=== PATIENT | male | born 1960 | race Caucasian/White ===

== ENCOUNTER 2018-07-29 09:32 | Inpatient (IN) | payer OTHER ==
[~2018-07-29 09:32] MED LIST: CEFAZOLIN 1 GM INJ; LIDOCAINE 2% (SDV) 5 ML INJ; SEVOFLURANE 15 MIN
[2018-07-29] MEDS: LACTATED RINGER'S 1,000 ML IV* (11:30)
[2018-07-29] MEDS ORDERED: CEFAZOLIN 2 GM/50 ML (PMX) 50 ML IVPB (11:30)
[2018-07-29] MEDS: THROMBIN (BOVINE) 5,000 UNIT VIAL TP ×2 (11:49→13:37)
[2018-07-29] MEDS: SURGIFOAM POWDER 1 GM KIT (11:49)
[2018-07-29] MEDS: POLYMYXIN/BACITRACIN 1L IRRIG (11:49)
[2018-07-29] MEDS: BUPIVACAINE 0.5%/EPI (SDV) 30 ML INJ (11:49)
[2018-07-29] MEDS: HEPARIN 1000 UNITS/ML 10 ML INJ (11:49)
[2018-07-29] MEDS ORDERED: HYDROmorphONE 1 MG/5 ML IV SYRINGE IV ×3 (12:30)
[2018-07-29] MEDS ORDERED: LABETALOL HCL 20MG INJ IV (12:30)
[2018-07-29] MEDS ORDERED: EPHEDrine SULFATE 50 MG/5 ML SYG IV (12:30)
[2018-07-29] MEDS ORDERED: hydrALAzine 20 MG INJ IV (12:30)
[2018-07-29] MEDS ORDERED: MEPERIDINE 25 MG INJ IV (12:30)
[2018-07-29] MEDS ORDERED: PROCHLORPERAZINE 10 MG INJ IV (12:30)
[2018-07-29] MEDS ORDERED: FENTAnyl 50 MCG/ML VIAL IV ×2 (12:30)
[2018-07-29] MEDS ORDERED: OXYCODONE/ACETAMINOPHEN (5/325) TAB PO (12:30)
[2018-07-29] MEDS ORDERED: DIPHENHYDRAMINE 50 MG INJ IV ×2 (12:30→15:00)
[2018-07-29] MEDS ORDERED: FENTAnyl 50 MCG/ML VIAL (12:33)
[2018-07-29] MEDS ORDERED: MIDAZOLAM 1 MG/ML 2 ML INJ (12:33)
[2018-07-29] MEDS ORDERED: SUCCINYLCHOLINE CHLORIDE 100 MG/5 ML SYG IV (12:51)
[2018-07-29] MEDS ORDERED: ONDANSETRON 4 MG INJ (12:51)
[2018-07-29] MEDS ORDERED: ROCURONIUM 50 MG INJ (12:51)
[2018-07-29] MEDS ORDERED: DEXAMETHASONE 4 MG/ML 5 ML INJ (12:51)
[2018-07-29] MEDS ORDERED: PROPOFOL 40 ML (12:51)
[2018-07-29] MEDS ORDERED: FAMOTIDINE 20 MG INJ (12:51)
[2018-07-29] MEDS ORDERED: LIDOCAINE 2% (SDV) 5 ML INJ (12:51)
[2018-07-29] MEDS: CA CHLORIDE (GM) 10% 10 ML INJ (13:37)
[2018-07-29] MEDS ORDERED: HYDROmorphONE 2 MG/ML SYG (14:16)
[2018-07-29] MEDS ORDERED: BUPIVACAINE 0.25% (MPF) 30 ML INJ (14:19)
[2018-07-29] MEDS ORDERED: NEOSTIGMINE 10 MG INJ (14:23)
[2018-07-29] MEDS ORDERED: GLYCOPYRROLATE 0.4 MG INJ (14:23)
[2018-07-29] MEDS ORDERED: HYDROCODONE/APAP (10/325) TAB PO (15:00)
[2018-07-29] MEDS: FENTAnyl 50 MCG/ML VIAL IV ×2 (15:00→15:10)
[2018-07-29] MEDS ORDERED: ONDANSETRON 4 MG INJ IV (15:00)
[2018-07-29] MEDS ORDERED: CYCLOBENZAPRINE 10 MG TAB PO (15:00)
[2018-07-29] MEDS: ONDANSETRON 4 MG INJ IV (15:00)
[2018-07-29] MEDS ORDERED: MAGNESIUM HYDROXIDE 30ML CUP PO (15:00)
[2018-07-29] MEDS ORDERED: CEPASTAT LOZENGE MT (15:00)
[2018-07-29] MEDS ORDERED: DIPHENHYDRAMINE 25 MG CAP PO (15:00)
[2018-07-29] MEDS ORDERED: HYDROmorphONE 0.5 MG/0.5 ML SYG IV (15:00)
[2018-07-29] MEDS ORDERED: BISACODYL 10 MG SUPP PR (15:00)
[2018-07-29] MEDS ORDERED: ACETAMINOPHEN 325 MG TAB PO (15:00)
[2018-07-29] MEDS ORDERED: NALOXONE (0.4 MG/ML) INJ IV (15:00)
[2018-07-29] MEDS: CEFAZOLIN 1 GM/50 ML (PMX) 50 ML IVPB (16:54)
[2018-07-29] MEDS: D5W-0.45 NACL + KCL 20 MEQ 1,000 ML IV (16:54)
[2018-07-29] MEDS: HYDROCODONE/APAP (10/325) TAB PO (18:11)
[2018-07-29] MEDS: DOCUSATE SODIUM 100 MG CAP PO (22:19)
[2018-07-30] MEDS: CEFAZOLIN 1 GM/50 ML (PMX) 50 ML IVPB ×2 (00:08→06:41)
[2018-07-30] MEDS: D5W-0.45 NACL + KCL 20 MEQ 1,000 ML IV (00:42)
[2018-07-30 05:14] LABS: ADD MAN DIFF? NO
[2018-07-30 05:16] LABS: WHITE BLOOD COUNT 13.3 10^3/ul (4.8-10.8)
[2018-07-30 05:16] LABS: BASOPHILS % 0.2 % (0.0-2.0); EOSINOPHILS % 0.1 % (0.0-7.0); HEMATOCRIT 40.8 % (42.0-52.0); LYMPHOCYTES # 1.2 10^3/ul (0.8-2.9); LYMPHOCYTES % 8.9 % (15.0-51.0); MEAN CORPUSCULAR HEMOGLOBIN 29.2 pg (29.0-33.0); MEAN CORPUSCULAR HGB CONC 34.3 g/dl (32.0-37.0); MONOCYTE # 0.8 10^3/ul (0.3-0.9); MONOCYTES % 5.6 % (0.0-11.0); NEUTROPHIL # 11.3 10^3/ul (1.6-7.5); NEUTROPHILS % 84.6 % (39.0-77.0); PLATELET COUNT 223 10^3/UL (140-415); RED CELL DISTRIBUTION WIDTH 12.1 % (11.5-14.5)
[2018-07-30 05:46] LABS: ANION GAP 11 (5-13); BLOOD UREA NITROGEN 10 mg/dl (7-20); CALCIUM 9.2 mg/dl (8.4-10.2); CARBON DIOXIDE 27 mmol/L (21-31); CHLORIDE 101 mmol/L (97-110); CREATININE 0.63 mg/dl (0.61-1.24); Estimated GFR > 60 mL/min (>60); GLUCOSE 122 mg/dl (70-220); MAGNESIUM 1.7 mg/dl (1.7-2.5); POTASSIUM 4.8 mmol/L (3.5-5.1); SODIUM 139 mmol/L (135-144)
[2018-07-30] MEDS: HYDROCODONE/APAP (10/325) TAB PO ×2 (06:41→10:31)
[2018-07-30] MEDS: DOCUSATE SODIUM 100 MG CAP PO (08:50)
== END 2018-07-30 10:46 | disposition home or self-care (01) | DRG 520 ==
LOC: REC 09:32 → MS1 15:46
PROC: 0SB20ZZ Excision of Lumbar Vertebral Disc, Open Approach (ICD-10-PCS; principal; 2018-07-29 12:00)
PROC: 01NB0ZZ Release Lumbar Nerve, Open Approach (ICD-10-PCS; 2018-07-29 12:00)
PROC: 4A11X4G Monitoring of Peripheral Nervous Electrical Activity, Intraoperative, External Approach (ICD-10-PCS; 2018-07-29 12:00)
DX: M51.16 Intervertebral disc disorders with radiculopathy, lumbar region (principal); M48.07 Spinal stenosis, lumbosacral region; E78.5 Hyperlipidemia, unspecified
CPT/HCPCS: 72020; 80048; 83735; 85025; 86999; 88304; 97110; 97116; 97161